=== PATIENT | female | born 1985 | race African-American/Black ===

== ENCOUNTER 2020-12-16 16:10 | Emergency (ER) | payer OTHER ==
[~2020-12-16 16:10] MED LIST: BUSPAR5 MG PO; CARAFATE1 GM PO; CLEOCIN HCL300 MG PO; COLACE100 MG PO; ELAVIL10 MG PO; FEOSOL325 MG PO; HYDROCODONE-APA1 TAB PO; IBUPROFEN800 MG PO; LASIX20 MG PO; LYRICA 50MG CAP50 MG PO; NITROQUIK SL0.4 MG SL; NORCO 5-325 TA1 EACH PO; NORVASC5 MG PO; PAXIL40 MG PO; PERCOCET 10/321 EACH PO; POTASSIUM CHLO10 MEQ PO; PRILOSEC20 MG PO; PRINIVIL20 MG PO; ROBAXIN750 MG PO; TOPROL XL 25MG25 MG PO; TRAZODONE 100M100 MG PO; ZOFRAN4 MG PO
[2020-12-16] MEDS ORDERED: NORCO 5-325 TA1 EACH PO (18:12)
== END 2020-12-16 19:32 | disposition home or self-care (01) ==
LOC: FER 16:10
DX: S53.125A Posterior dislocation of left ulnohumeral joint, initial encounter (principal); I10 Essential (primary) hypertension; W10.9XXA Fall (on) (from) unspecified stairs and steps, initial encounter; Y92.009 Unspecified place in unspecified non-institutional (private) residence as the place of occurrence of the external cause
CPT/HCPCS: 73060; 73070; 93005; 96374; J1170; J2405; J2704

== ENCOUNTER → 2021-06-08 | Day surgery (SDC) | payer OTHER ==
[~2021-06-08] VITALS: Ht 152.4 cm; Wt 142.9 kg
[~2021-06-08] MED LIST changes: +HYDROCODON-ACE1 EAC2 PO; +OMEPRAZOLE40 MG PO; +VIT D PO
[2021-06-08 09:18] LABS: HCT 34.5 % (37.0-47.0); HGB 10.2 g/dl (12.5-16.0); MCHC 29.6 g/dL (32.0-36.0); MCV 77.9 fL (78.0-100.0); MPV 9.4 fL (6.0-9.5); RBC 4.43 M/uL (4.20-5.40); RDW 18.1 % (11.5-14.0); WBC 9.6 K/uL (4.0-10.5)
[2021-06-08 09:34] LABS: ALBUMIN 3.3 g/dL (3.4-5.0); BILIRUBIN - TOTAL 0.2 mg/dL (0.2-1.0); BUN/CREAT RATIO (CALC) 11.8 RATIO; CREATININE 0.85 mg/dL (0.51-0.95); GLOBULIN (CALCULATION) 4.3 g/dL; TOTAL PROTEIN 7.6 g/dL (6.4-8.2)
== END | disposition home or self-care (01) ==
LOC: FAS 07:50
PROVIDERS: Surgery
DX: K31.9 Disease of stomach and duodenum, unspecified (principal); K29.70 Gastritis, unspecified, without bleeding; R13.10 Dysphagia, unspecified; R12 Heartburn; K21.9 Gastro-esophageal reflux disease without esophagitis; Z79.899 Other long term (current) drug therapy; Z88.1 Allergy status to other antibiotic agents; Z90.710 Acquired absence of both cervix and uterus; Z90.49 Acquired absence of other specified parts of digestive tract
CPT/HCPCS: 36415; 80053; J1170; J2704; J7120

== ENCOUNTER 2022-03-19 19:51 | Emergency (ER) | payer OTHER ==
[2022-03-19 20:18] LABS: BASOPHIL 0.1 % (0-2); EOSINOPHIL 0.1 % (0-5); HGB 11.2 g/dl (12.5-16.0); LYMPHOCYTE 9.9 % (15-48); MCH 25.3 pg (25.0-31.0); MCHC 31.1 g/dL (32.0-36.0); MCV 81.4 fL (78.0-100.0); MONOCYTE 3.6 % (0-12); MPV 10.8 fL (6.0-9.5); NEUTROPHIL 85.8 % (41-80); NRBC 0; PLT 370 K/uL (150-400); RBC 4.42 M/uL (4.20-5.40); RDW 17.1 % (11.5-14.0); WBC 14.9 K/uL (4.0-10.5)
[2022-03-19 20:39] LABS: ALBUMIN 3.4 g/dL (3.4-5.0); BILIRUBIN - TOTAL 0.4 mg/dL (0.2-1.0); GLOBULIN (CALCULATION) 4.3 g/dL; POTASSIUM 4.1 mmol/L (3.5-5.1); TOTAL PROTEIN 7.7 g/dL (6.4-8.2)
[2022-03-19] MEDS ORDERED: PHENERGAN25 M1 PO (21:35)
[2022-03-19] MEDS ORDERED: CIPRO500 MG PO (21:35)
[2022-03-19] MEDS ORDERED: ONDANSETRON ODT4 MG PO (21:35)
[2022-03-19 22:15] LABS: CORONAVIRUS 2019 SARS-COV-2 NEGATIVE (NEGATIVE); INFLUENZA A NAA NEGATIVE (NEGATIVE)
== END 2022-03-19 22:25 | disposition home or self-care (01) ==
LOC: FER 19:51
PROVIDERS: Emergency Medicine
DX: R07.89 Other chest pain (principal); K52.9 Noninfective gastroenteritis and colitis, unspecified; I10 Essential (primary) hypertension; J45.909 Unspecified asthma, uncomplicated; Z88.0 Allergy status to penicillin; Z88.1 Allergy status to other antibiotic agents; Z79.899 Other long term (current) drug therapy; Z20.822 Contact with and (suspected) exposure to COVID-19
CPT/HCPCS: 36415; 80053; 84484; 85025; 93005; J1170; J1885; J2405; J7030; Q9967; U0002

== ENCOUNTER 2022-04-20 22:32 | Emergency (ER) | payer OTHER ==
[~2022-04-20 22:32] MED LIST changes: +CIPRO500 MG PO; +ONDANSETRON ODT4 MG PO; +PHENERGAN25 M1 PO
[2022-04-20 22:47] LABS: BASOPHIL 0.3 % (0-2); EOSINOPHIL 1.4 % (0-5); HCT 35.2 % (37.0-47.0); HGB 11.1 g/dl (12.5-16.0); LYMPHOCYTE 28.1 % (15-48); MCH 25.5 pg (25.0-31.0); MCHC 31.5 g/dL (32.0-36.0); MCV 80.9 fL (78.0-100.0); MONOCYTE 7.6 % (0-12); MPV 10.3 fL (6.0-9.5); NEUTROPHIL 62.2 % (41-80); NRBC 0; PLT 323 K/uL (150-400); RBC 4.35 M/uL (4.20-5.40); RDW 16.5 % (11.5-14.0); WBC 11.1 K/uL (4.0-10.5)
[2022-04-20 23:01] LABS: ALBUMIN 3.5 g/dL (3.4-5.0); BILIRUBIN - TOTAL 0.4 mg/dL (0.2-1.0); BUN/CREAT RATIO (CALC) 12.5 RATIO; CREATININE 1.04 mg/dL (0.51-0.95); GLOBULIN (CALCULATION) 3.8 g/dL; POTASSIUM 3.5 mmol/L (3.5-5.1); TOTAL PROTEIN 7.3 g/dL (6.4-8.2)
[2022-04-20 23:35] LABS: INFLUENZA A NAA NEGATIVE (NEGATIVE)
[2022-04-20 23:40] LABS: BILIRUBIN NEGATIVE (NEGATIVE); BLOOD NEGATIVE Ery/uL (NEGATIVE); CLARITY CLEAR (CLEAR); COLOR YELLOW (YELLOW); GLUCOSE (U) NORMAL (NORMAL); LEUKOCYTES NEGATIVE Leu/uL (NEGATIVE); NITRITE NEGATIVE (NEGATIVE); PROTEIN NEGATIVE (NEGATIVE); UROBILINOGEN 0.2 mg/dL (0.2-1.0)
[2022-04-20 23:52] LABS: CORONAVIRUS 2019 SARS-COV-2 POSITIVE (NEGATIVE)
[2022-04-21] MEDS ORDERED: ONDANSETRON ODT4 MG PO (02:54)
[2022-04-21] MEDS ORDERED: PROTONIX 40MG T40 MG PO (02:54)
[2022-04-21] MEDS ORDERED: NORCO 5-325 TA1 EACH PO (02:54)
== END 2022-04-21 03:18 | disposition home or self-care (01) ==
LOC: FER 22:32
PROVIDERS: Emergency Medicine
DX: K29.70 Gastritis, unspecified, without bleeding (principal); K29.80 Duodenitis without bleeding; U07.1 COVID-19; Z88.0 Allergy status to penicillin; Z88.1 Allergy status to other antibiotic agents
CPT/HCPCS: 36415; 80053; 81003; 82150; 83690; 85025; 93005; C9113; J2270; J2405; J7030; Q9967; U0002